=== PATIENT | female | born 1950 | race Caucasian/White ===

== ENCOUNTER 2022-06-08 11:47 | Emergency (ER) | payer OTHER, SELFPAY ==
[~2022-06-08] VITALS: Ht 165.1 cm; Wt 100.0 kg
[2022-06-08] MEDS ORDERED: normal saline 1000ML IV soln IVB ONE (12:50)
[2022-06-08] MEDS ORDERED: famotidine/PF 10 mg/ml inj IV ONE (12:50)
[2022-06-08] MEDS ORDERED: ondansetron/PF 4mg/2ml inj IV ONE (12:50)
[2022-06-08] MEDS ORDERED: propofol 10mg/ml 20ml vial IV ONE ×2 (13:05→14:15)
--- NOTE | 2022-06-08 14:15 | NUR ---
xray taken, still displaced. getting new propofol order. dr. pablo at bedside.
[2022-06-08] MEDS ORDERED: propofol 1000mg/100ml bottle 0 ML IV ONE (14:19)
--- NOTE | 2022-06-08 14:19 | NUR ---
waiting on diprovan to be verified to pull. dr. pablo had to order, nurse could not order
[2022-06-08] MEDS ORDERED: ONDA4TAB12 PO (15:01)
[2022-06-08] MEDS ORDERED: OXYC-145 PO (15:01)
[2022-06-08 15:15] VITALS: BP 138/68
[2022-06-08] MEDS ORDERED: TRAM50TA2 PO (16:01)
== END 2022-06-08 15:31 | disposition home or self-care (01) ==
LOC: ER 11:47
DX: S53.114A Anterior dislocation of right ulnohumeral joint, initial encounter (principal); X58.XXXA Exposure to other specified factors, initial encounter; Y93.89 Activity, other specified; Y92.89 Other specified places as the place of occurrence of the external cause; Y99.8 Other external cause status
CPT/HCPCS: 24600; 73070; 73110; 96361; 96374; 96375; 99152; 99153; 99291; J2405; J3490; J7030; 94760; A4565; J2704

== ENCOUNTER 2022-09-19 08:13 | Outpatient (CLI) | payer SELFPAY ==
[~2022-09-19 08:13] MED LIST: ONDA4TAB12 PO; OXYC-145 PO
== END 2022-09-19 23:59 | disposition home or self-care (01) ==
LOC: VAS 08:13
DX: Z13.6 Encounter for screening for cardiovascular disorders (principal)

== ENCOUNTER 2022-12-22 15:18 | Emergency (ER) | payer OTHER, SELFPAY ==
[~2022-12-22] VITALS: Ht 165.1 cm; Wt 90.0 kg
[2022-12-22 15:23] VITALS: BP 157/76
[2022-12-22] MEDS ORDERED: ondansetron 4mg rapidly disintigrating tab PO ONE (15:50)
[2022-12-22] MEDS ORDERED: HYDROcodone/acetaminophen 5mg/325mg tablet PO ONE (15:50)
[2022-12-22] MEDS ORDERED: OXYC-145 PO (16:00)
== END 2022-12-22 16:26 | disposition home or self-care (01) ==
LOC: ER 15:19
DX: S83.005A Unspecified dislocation of left patella, initial encounter (principal); Z79.899 Other long term (current) drug therapy; X58.XXXA Exposure to other specified factors, initial encounter; Y93.89 Activity, other specified; Y92.89 Other specified places as the place of occurrence of the external cause; Y99.8 Other external cause status
CPT/HCPCS: 73560; 99283